=== PATIENT | female | born 1965 | race Caucasian/White ===

== ENCOUNTER 2020-06-07 16:30 | Emergency (ER) | payer MEDICAID, OTHER, SELFPAY ==
[~2020-06-07] VITALS: Ht 154.9 cm; Wt 50.3 kg
--- NOTE | 2020-06-07 16:51 | NUR ---
PIV STARTED AND LABS DRAWN.
[2020-06-07] MEDS ORDERED: LORazepam 2 MG/ML, 1ML ONE (16:52)
--- NOTE | 2020-06-07 17:00 | NUR ---
THIS IS A 55 YO F BIB EMS FROM [facility] W/ C/O SEIZURE. PT REPORTS HAS NOT HAD KEPPRA/DEPAKOTE X4 DAYS DUE TO ACCESS. PT RESTING ON GURNEY W/ CALL LIGHT IN REACH, SEIZURE PRECAUTIONS IN PLACE. MARY GOODWIN. AWAITING ED EVAL.
[2020-06-07 17:45] LABS: BASOPHILS % (AUTO) 1 % (0-1); EOSINOPHILS % (AUTO) 4 % (1-7); LYMPHOCYTES % (AUTO) 33 % (22-44); MEAN CORPUSCULAR HEMOGLOBIN 29.8 pg (27.0-34.8); MEAN CORPUSCULAR HGB CONC 33.3 g/dL (32.4-35.8); MEAN PLATELET VOLUME 9.1 fL (7.4-10.4); MONOCYTES % (AUTO) 12 % (2-9); NEUTROPHILS % (AUTO) 50 % (42-75); PLATELET COUNT 97 x10^3/uL (130-400); RED BLOOD COUNT 4.45 x10^6/uL (3.82-5.3)
[2020-06-07 17:46] LABS: MD NO
[2020-06-07 17:54] LABS: ALBUMIN 3.2 g/dL (3.4-5.0); ANION GAP 7 mmol/L (5-15); CALCIUM 8.7 mg/dL (8.5-10.1); CHLORIDE 107 mmol/L (98-107); CREATININE 1.16 mg/dL (0.55-1.02)
--- NOTE | 2020-06-07 17:58 | NUR ---
MED FIDENCIO FROM PHARMACY.
[2020-06-07] MEDS ORDERED: LEVETIRACETAM 1,000 MG in SODIUM CHLORIDE 0.9% 100 ML IV ONE (18:00)
--- NOTE | 2020-06-07 18:20 | NUR ---
CARE ASSUMED FOR NATURAL SCIENCES PROFESSOR. PT AxOx4. NO DISTRESS
[2020-06-07] MEDS ORDERED: LORazepam 1MG TABLET ONE (19:09)
[2020-06-07 19:15] VITALS: BP 96/61
[2020-06-07] MEDS ORDERED: LORazepam 1MG TABLET PO ONE (19:30)
== END 2020-06-07 19:42 | disposition home or self-care (01) ==
LOC: ED 18:29
DX: R56.9 Unspecified convulsions (principal); R51.9 Headache, unspecified; F41.9 Anxiety disorder, unspecified
CPT/HCPCS: 36415; 80048; 80185; 80307; 82040; 85025; 96365; 99284; J1953

== ENCOUNTER 2020-06-20 12:23 | Emergency (ER) | payer MEDICAID ==
[~2020-06-20] VITALS: Ht 167.6 cm; Wt 65.0 kg
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
--- NOTE | 2020-06-20 12:57 | NUR ---
REPORT TO TOMAS REED.
--- NOTE | 2020-06-20 12:57 | NUR ---
RECEIVED REPORT FROM TAMIKA
[2020-06-20] MEDS ORDERED: LORazepam 2 MG/ML, 1ML IVPush ONE (13:00)
--- NOTE | 2020-06-20 13:03 | NUR ---
PT UPRIGHT ON GURNEY WITH EYES CLOSED, AWAKENS WITH VERBAL STIMULI, NAD, COMFORT MEASURES PROVIDED, CALL LIGHT WITHIN REACH.
[2020-06-20] MEDS ORDERED: LORazepam 2 MG/ML, 1ML ONE (13:07)
[2020-06-20 13:26] LABS: ALBUMIN 2.8 g/dL (3.4-5.0); ANION GAP 4 mmol/L (5-15); CALCIUM 8.3 mg/dL (8.5-10.1); CHLORIDE 107 mmol/L (98-107); CREATININE 0.99 mg/dL (0.55-1.02)
[2020-06-20] MEDS ORDERED: SODIUM CHLORIDE FLUSH 10ML SYR IVF ONE (13:30)
[2020-06-20 13:31] LABS: BASOPHILS % (AUTO) 1 % (0-1); EOSINOPHILS % (AUTO) 5 % (1-7); LYMPHOCYTES % (AUTO) 30 % (22-44); MEAN CORPUSCULAR HGB CONC 33.1 g/dL (32.4-35.8); MEAN PLATELET VOLUME 8.9 fL (7.4-10.4); MONOCYTES % (AUTO) 23 % (2-9); NEUTROPHILS % (AUTO) 42 % (42-75); PLATELET COUNT 118 x10^3/uL (130-400); RED BLOOD COUNT 4.43 x10^6/uL (3.82-5.3); RED CELL DISTRIBUTION WIDTH 14.5 % (9.6-15.2)
[2020-06-20 13:48] LABS: MD NO
--- NOTE | 2020-06-20 13:53 | NUR ---
PT TO CT
--- NOTE | 2020-06-20 14:10 | NUR ---
PT UPRIGHT ON GURNEY WITH EYES CLOSED, AWAKENS WITH VERBAL STIMULI, COMFORTABLE WITH NAD, NO NEEDS AT THIS TIME, CALL LIGHT WITHIN REACH, SEIZURE PRECAUTIONS REMAIN IN PLACE.
--- NOTE | 2020-06-20 14:40 | NUR ---
PT TO XR
--- NOTE | 2020-06-20 15:25 | NUR ---
PT RETURNED FROM XR, LAYING ON GURNEY WITH EYES CLOSED, AWAKENS WITH VERBAL STIMULI, COMFORTABLE WITH NAD, NO NEEDS AT THIS TIME, CALL LIGHT WITHIN REACH, SEIZURE PRECAUTIONS REMAIN IN PLACE.
[2020-06-20 16:00] VITALS: BP 115/70
--- NOTE | 2020-06-20 16:00 | NUR ---
PT LAYING ON GURNEY MOSTLY SLEEPING, AWAKENS WITH VERBAL STIMULI, COMFORTABLE WITH NAD, NO NEEDS AT THIS TIME, CALL LIGHT WITHIN REACH, SEIZURE PRECAUTIONS REMAIN IN PLACE.
--- NOTE | 2020-06-20 16:45 | NUR ---
Patient given discharge instructions and they have confirmed that they understand the instructions. Patient ambulatory with steady gait.
== END 2020-06-20 17:32 | disposition home or self-care (01) ==
LOC: ED 13:38
DX: S39.012A Strain of muscle, fascia and tendon of lower back, initial encounter (principal); S16.1XXA Strain of muscle, fascia and tendon at neck level, initial encounter; S09.90XA Unspecified injury of head, initial encounter; R56.9 Unspecified convulsions; R55 Syncope and collapse; M54.2 Cervicalgia; R51.9 Headache, unspecified; W19.XXXA Unspecified fall, initial encounter; Y93.01 Activity, walking, marching and hiking; Y92.488 Other paved roadways as the place of occurrence of the external cause; Y99.8 Other external cause status
CPT/HCPCS: 36415; 70450; 71045; 72072; 72110; 72125; 73564; 80048; 80164; 80177; 82040; 85025; 93005; 96374; 99285; J2060

== ENCOUNTER 2020-06-27 13:02 | Emergency (ER) | payer MEDICAID ==
[~2020-06-27] VITALS: Ht 154.9 cm; Wt 47.0 kg
[2020-06-27 13:10] VITALS: BP 99/35
--- NOTE | 2020-06-27 13:50 | NUR ---
TILE TRIMMER: PT AMBULATORY TO ROOM FROM LOBBY
== END 2020-06-27 14:42 | disposition home or self-care (01) ==
LOC: ED 14:36
DX: R56.9 Unspecified convulsions (principal); F17.200 Nicotine dependence, unspecified, uncomplicated; Z76.0 Encounter for issue of repeat prescription
CPT/HCPCS: 99283

== ENCOUNTER 2020-11-03 10:10 | Emergency (ER) | payer MEDICAID ==
[~2020-11-03] VITALS: Ht 154.9 cm; Wt 58.0 kg
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
--- NOTE | 2020-11-03 10:10 | NUR ---
Report recieved from [facility] staff and care assumed. Pt placed in gown and on monitor. IV site assessed and saline locked again. Pt drowsy with 2mg Versed given by EMS WINE CELLAR STOCK CLERK.
[2020-11-03] MEDS ORDERED: SODIUM CHLORIDE FLUSH 10ML SYR IVF ONE (10:30)
[2020-11-03 10:44] LABS: BASOPHILS % (AUTO) 1 % (0-1); EOSINOPHILS % (AUTO) 2 % (1-7); LYMPHOCYTES % (AUTO) 14 % (22-44); MEAN CORPUSCULAR HEMOGLOBIN 31.2 pg (27.0-34.8); MEAN CORPUSCULAR HGB CONC 33.4 g/dL (32.4-35.8); MEAN PLATELET VOLUME 7.2 fL (7.4-10.4); MONOCYTES % (AUTO) 8 % (2-9); NEUTROPHILS % (AUTO) 76 % (42-75); PLATELET COUNT 198 x10^3/uL (130-400); RED CELL DISTRIBUTION WIDTH 15.2 % (9.6-15.2)
[2020-11-03 10:47] LABS: MD NO
[2020-11-03 10:56] LABS: ALANINE AMINOTRANSFERASE 19 U/L (12-78); ALBUMIN 3.2 g/dL (3.4-5.0); ANION GAP 4 mmol/L (5-15); CALCIUM 8.7 mg/dL (8.5-10.1); CHLORIDE 109 mmol/L (98-107); CREATININE 0.58 mg/dL (0.55-1.02)
[2020-11-03 10:59] LABS: ALKALINE PHOSPHATASE 75 U/L (45-117); BILIRUBIN,TOTAL 0.4 mg/dL (0.2-1.0); TOTAL PROTEIN 6.3 g/dL (6.4-8.2)
--- NOTE | 2020-11-03 11:02 | NUR ---
Straight cath UA obtained and sent to lab. Pt then placed on bedpan with good results. Pericare completed and pt provided new warm blanket.
--- NOTE | 2020-11-03 11:09 | NUR ---
Pt requesting bedpan again and place on it.
--- NOTE | 2020-11-03 11:11 | NUR ---
Pt off bedpan and no further uop noted.
[2020-11-03 11:24] LABS: MICROSCOPIC INDICATED
[2020-11-03 11:29] LABS: AMPHETAMINE SCREEN, URINE Negative (Negative); BARBITURATE SCREEN, URINE Negative (Negative); BENZODIAZEPINE SCREEN, URINE Positive (Negative); CANNABINOID SCREEN, URINE Positive (Negative); OPIATE SCREEN, URINE Negative (Negative)
[2020-11-03] MEDS ORDERED: LEVETIRACETAM 1,000 MG in SODIUM CHLORIDE 0.9% 100 ML IV ONE (11:30)
[2020-11-03] MEDS ORDERED: VALPROATE SODIUM 500 MG in SODIUM CHLORIDE 0.9% 100 ML IV ONE (11:30)
[2020-11-03 11:32] LABS: COCAINE SCREEN, URINE Negative (Negative); METHADONE SCREEN, URINE Negative (Negative)
--- NOTE | 2020-11-03 11:45 | NUR ---
Venkatesh gtt started at this time.
--- NOTE | 2020-11-03 12:29 | NUR ---
Second IV gtt med up and running via dial-a-flow. D/C up for when meds complete.
--- NOTE | 2020-11-03 13:06 | NUR ---
IV site reassessed for any infiltration or leaking as Valproic acid is running. Site is benign and pt is sleeping in no distress.
--- NOTE | 2020-11-03 13:31 | NUR ---
IV med gtt still infusing with small amount left to go now. Warm blanket provided and diet tray ordered.
--- NOTE | 2020-11-03 13:41 | NUR ---
Valproic gtt completed, site benign and saline locked. Awaiting diet tray as pt states she feels shaky and weak and has not eaten "in awhile." tug captain notified for reason of delay in discharge.
--- NOTE | 2020-11-03 13:49 | NUR ---
Lunch tray brought into pt and pt set up and eating without issue. Pt aware of discharge after she is done eating and feels less shaky.
--- NOTE | 2020-11-03 14:15 | NUR ---
Pt able to walk to restroom and back with minimal one-person assist and states she usually uses a cane but it was left at [facility]. Pt readied for d/c and taken to d/c desk by wheelchair with taxi voucher.
[2020-11-03 14:23] VITALS: BP 107/62
== END 2020-11-03 14:26 | disposition home or self-care (01) ==
LOC: ED 12:06
DX: G40.419 Other generalized epilepsy and epileptic syndromes, intractable, without status epilepticus (principal)
CPT/HCPCS: 36415; 71045; 80053; 80164; 80177; 80307; 81001; 85025; 87086; 93005; 96365; 96375; 99285; J1953

== ENCOUNTER 2020-11-11 20:34 | Emergency (ER) | payer MEDICAID ==
[~2020-11-11] VITALS: Ht 154.9 cm; Wt 42.5 kg
[2020-11-11 20:37] VITALS: BP 126/75
== END 2020-11-11 20:55 | disposition home or self-care (01) ==
LOC: ED 20:49
DX: F12.10 Cannabis abuse, uncomplicated (principal); R68.83 Chills (without fever); F17.210 Nicotine dependence, cigarettes, uncomplicated; Z72.9 Problem related to lifestyle, unspecified; Z59.0 Homelessness
CPT/HCPCS: 99283; 99406

== ENCOUNTER 2020-12-02 13:47 | Emergency (ER) | payer MEDICAID ==
[~2020-12-02] VITALS: Ht 154.9 cm; Wt 48.9 kg
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
[2020-12-02] MEDS ORDERED: HYDROcodone/APAP 5/325 TABLET ONE (14:22)
[2020-12-02] MEDS ORDERED: HYDROcodone/APAP 5/325 TABLET PO ONE (14:30)
[2020-12-02 15:19] VITALS: BP 104/61
== END 2020-12-02 15:58 | disposition home or self-care (01) ==
LOC: ED 15:30
DX: S20.222A Contusion of left back wall of thorax, initial encounter (principal); Z76.0 Encounter for issue of repeat prescription; R94.31 Abnormal electrocardiogram [ECG] [EKG]; J45.909 Unspecified asthma, uncomplicated; X58.XXXA Exposure to other specified factors, initial encounter; Y93.89 Activity, other specified; Y92.89 Other specified places as the place of occurrence of the external cause; Y99.8 Other external cause status
CPT/HCPCS: 93005; 99283

== ENCOUNTER 2020-12-08 00:42 | Observation (INO) | payer MEDICAID ==
[~2020-12-08] VITALS: Ht 154.9 cm; Wt 45.5 kg
[2020-12-08 01:14] LABS: BASOPHILS % (AUTO) 1 % (0-1); EOSINOPHILS % (AUTO) 5 % (1-7); LYMPHOCYTES % (AUTO) 25 % (22-44); MEAN CORPUSCULAR HEMOGLOBIN 31.2 pg (27.0-34.8); MEAN CORPUSCULAR HGB CONC 33.6 g/dL (32.4-35.8); MEAN PLATELET VOLUME 7.2 fL (7.4-10.4); MONOCYTES % (AUTO) 10 % (2-9); NEUTROPHILS % (AUTO) 59 % (42-75); PLATELET COUNT 239 x10^3/uL (130-400); RED BLOOD COUNT 4.19 x10^6/uL (3.82-5.3); RED CELL DISTRIBUTION WIDTH 14.1 % (9.6-15.2)
[2020-12-08 01:22] LABS: ALANINE AMINOTRANSFERASE 23 U/L (12-78); ALBUMIN 3.1 g/dL (3.4-5.0); ANION GAP 6 mmol/L (5-15); CALCIUM 8.3 mg/dL (8.5-10.1); CHLORIDE 112 mmol/L (98-107); SALICYLATE LEVEL 1.9 mg/dL (2.8-20.0)
[2020-12-08 01:33] LABS: ALKALINE PHOSPHATASE 98 U/L (45-117); BILIRUBIN,TOTAL 0.2 mg/dL (0.2-1.0); CREATININE 0.69 mg/dL (0.55-1.02); TOTAL PROTEIN 6.5 g/dL (6.4-8.2)
[2020-12-08 01:37] LABS: MD NO
[2020-12-08 01:52] LABS: FREE T4 (FREE THYROXINE) 0.96 ng/dL (0.76-1.46)
--- NOTE | 2020-12-08 01:59 | NUR ---
RECEIVED REPORT FROM OFF GOING RN. PT SLEEPING IN BED, HAS PROVIDED URINE FOR SAMPLE, AND MECHANICAL APPRENTICE HAS DRAWN BLOOD AND SENT IT TO LAB. EKG DONE. PT ON CR MONITOR, SIDERAILS UP X2 AND CALL LIGHT WITHIN REACH.
[2020-12-08] MEDS ORDERED: POTASSIUM CHLORIDE 40 MEQ in SODIUM CHLORIDE 0.9% 500 ML IV ONE (02:00)
--- NOTE | 2020-12-08 02:36 | NUR ---
TELEPSYCH ORDERED, AND TELEPSYCH MONITOR ROLLED INTO ROOM. PT ADVISED THAT WHEN THE DOCTOR COMES ON SHE IS TO TALK TO HIM WITH PRIVACY PROVIDED. PT V/U.
--- NOTE | 2020-12-08 04:56 | NUR ---
PT SLEEPING, NO ACUTE DISTRESS. SITTER OUTSIDE OF ROOM. TELE PSYCH MONITOR IN THE ROOM FOR PT.
--- NOTE | 2020-12-08 04:57 | NUR ---
SIDERAILS UP X2 AND CALL LIGHT WITHIN REACH.
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
--- NOTE | 2020-12-08 06:33 | NUR ---
DIET TRAY ORDERED
--- NOTE | 2020-12-08 07:17 | NUR ---
PATIENT AWAITING TELE PSYCH. PATIENT TRAY ORDERED. SLEEPING. CALM IN BED RAILS UP SITTER OUTSIDE ROOM
[2020-12-08 08:38] LABS: AMPHETAMINE SCREEN, URINE Negative (Negative); BARBITURATE SCREEN, URINE Negative (Negative); BENZODIAZEPINE SCREEN, URINE Negative (Negative); CANNABINOID SCREEN, URINE Positive (Negative); COCAINE SCREEN, URINE Negative (Negative); METHADONE SCREEN, URINE Negative (Negative); OPIATE SCREEN, URINE Negative (Negative)
--- NOTE | 2020-12-08 08:51 | NUR ---
ATE ALL OF BREAKFAST
--- NOTE | 2020-12-08 10:08 | NUR ---
PATIENT RESTING QUIETLY
[2020-12-08 10:38] VITALS: BP 122/78
--- NOTE | 2020-12-08 10:39 | NUR ---
GOT PATIENT ALL OF HER BELONGINGS. PATIENT HELPED TO CALL MEDICAID TRANSPORT TO CARE HOME AND GOT HER HER MEDICAID NUMBER. PATIENT GOOD ON FEET. GOT HER A PEANUT BUTTER AND JELLY SANDWICH, CRACKERS, JUICE TO GO. DISCHARGE REVIEWED. SHOWS UNDESTANDING
== END 2020-12-08 10:58 | disposition home or self-care (01) ==
LOC: ED 01:04 → EDIP 06:06
PROVIDERS: ADMIT Emergency Medicine; ATTEND Emergency Medicine
DX: F32.9 Major depressive disorder, single episode, unspecified (principal); R45.851 Suicidal ideations; F41.1 Generalized anxiety disorder; F20.9 Schizophrenia, unspecified; F43.10 Post-traumatic stress disorder, unspecified; J44.9 Chronic obstructive pulmonary disease, unspecified; F12.90 Cannabis use, unspecified, uncomplicated; F17.210 Nicotine dependence, cigarettes, uncomplicated; Z72.9 Problem related to lifestyle, unspecified; Z79.899 Other long term (current) drug therapy
CPT/HCPCS: 36415; 80053; 80299; 80307; 80320; 80329; 84439; 84443; 85025; 93005; 99284; G0378; G0480

== ENCOUNTER 2021-01-19 12:21 | Emergency (ER) | payer MEDICAID ==
[~2021-01-19] VITALS: Ht 154.9 cm; Wt 50.0 kg
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
[2021-01-19] MEDS ORDERED: LORazepam 1MG TABLET PO ONE (13:00)
[2021-01-19] MEDS ORDERED: LORazepam 1MG TABLET ONE (13:04)
[2021-01-19 13:08] LABS: BASOPHILS % (AUTO) 1 % (0-1); EOSINOPHILS % (AUTO) 4 % (1-7); LYMPHOCYTES % (AUTO) 31 % (22-44); MEAN CORPUSCULAR HEMOGLOBIN 30.6 pg (27.0-34.8); MEAN CORPUSCULAR HGB CONC 33.6 g/dL (32.4-35.8); MEAN PLATELET VOLUME 7.3 fL (7.4-10.4); MONOCYTES % (AUTO) 13 % (2-9); NEUTROPHILS % (AUTO) 51 % (42-75); PLATELET COUNT 197 x10^3/uL (130-400); RED BLOOD COUNT 4.23 x10^6/uL (3.82-5.3); RED CELL DISTRIBUTION WIDTH 13.9 % (9.6-15.2)
[2021-01-19] MEDS ORDERED: NICOTINE 14MG/24 HR PATCH.TD24 ONE (13:12)
[2021-01-19 13:15] LABS: HCG UR SG 1.028 (1.003-1.030); MICROSCOPIC NOT IND
[2021-01-19 13:19] LABS: ALANINE AMINOTRANSFERASE 24 U/L (12-78); ANION GAP 3 mmol/L (5-15); CALCIUM 8.2 mg/dL (8.5-10.1); CHLORIDE 113 mmol/L (98-107); CREATININE 0.64 mg/dL (0.55-1.02)
[2021-01-19 13:20] LABS: ALKALINE PHOSPHATASE 95 U/L (45-117); BILIRUBIN,TOTAL 0.3 mg/dL (0.2-1.0); TOTAL PROTEIN 6.4 g/dL (6.4-8.2)
[2021-01-19 13:21] LABS: SALICYLATE LEVEL < 1.7 mg/dL (2.8-20.0)
[2021-01-19] MEDS ORDERED: NICOTINE 14MG/24 HR PATCH.TD24 TD ONE (13:30)
[2021-01-19 13:31] LABS: AMPHETAMINE SCREEN, URINE Negative (Negative); BARBITURATE SCREEN, URINE Negative (Negative); BENZODIAZEPINE SCREEN, URINE Negative (Negative); CANNABINOID SCREEN, URINE Positive (Negative); COCAINE SCREEN, URINE Negative (Negative); METHADONE SCREEN, URINE Negative (Negative); OPIATE SCREEN, URINE Negative (Negative)
--- NOTE | 2021-01-19 13:54 | NUR ---
REPORT TO BRIGITTE REED.
--- NOTE | 2021-01-19 13:56 | NUR ---
ASSUMED CARE OF PATIENT. REPORT GIVEN FROM BRIANNA RODRIGUEZ
--- NOTE | 2021-01-19 14:55 | NUR ---
PT RESTING IN ROOM. SITTER AT BEDSIDE. NO ACUTE DISTRESS. WILL CONTINUE TO MONITOR.
--- NOTE | 2021-01-19 16:09 | NUR ---
PT RESTING IN ROOM. VS STABLE. SITTER AT BEDSIDE. WILL CONTINUE TO MONITOR.
--- NOTE | 2021-01-19 16:40 | NUR ---
pt transftered to room 3. this rn re-assuming care. belongings placed in locker: 1 large tube of clothing, 1 patient belongings bag, and 1 suitcase.
--- NOTE | 2021-01-19 17:10 | NUR ---
PT ASLEEP WITH EVEN AND UNLABORED RESPIRATIONS. SITTER AT BEDSIDE.
--- NOTE | 2021-01-19 19:00 | NUR ---
REPORT RECIEVED FROM BRIANNA RODRIGUEZ. PT SLEEPING, RESP EVEN/UNLABORED, PT ON CONTINUOUS PULSE OX
--- NOTE | 2021-01-19 19:38 | NUR ---
ERP SPOKE WITH PT, PT TO BE PUT ON A HOLD. SAFETY MEASURES IN PLACE, IN LINE OF SIGHT OF SITTER
[2021-01-19 20:03] VITALS: BP 102/65
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
--- NOTE | 2021-01-19 21:07 | NUR ---
pt resting in gurney, resp even/unlabored, continuous pulse ox in place, in line of sight of sitter
--- NOTE | 2021-01-19 21:47 | NUR ---
SPOKE WITH BRIANNA EDMOND AT [facility]. RN TO CALL DOC AND SEE IF THEY CAN ACCEPT
--- NOTE | 2021-01-19 22:01 | NUR ---
TP RN: [facility] ACCEPTED PT AND CAN BE TRANSFERED AFTER MIDNIGHT
--- NOTE | 2021-01-19 23:12 | NUR ---
PT RESTING IN [facility], PROVIDED SODA AND CRACKERS PER REQUEST. IN LINE OF SIGHT OF ORI
[2021-01-20] MEDS ORDERED: TRAZ-175 PO (05:54)
[2021-01-20] MEDS ORDERED: GABA600T7 PO (05:54)
[2021-01-20] MEDS ORDERED: CITA20TA6 PO (05:54)
[2021-01-20] MEDS ORDERED: OLAN20TA14 PO (05:54)
[2021-01-20] MEDS ORDERED: MIRT-14 PO (05:54)
[2021-01-20] MEDS ORDERED: DIVA500T2 PO (10:02)
== END 2021-01-20 00:26 ==
LOC: ED 13:07
DX: R45.851 Suicidal ideations (principal); Z20.822 Contact with and (suspected) exposure to COVID-19; F12.129 Cannabis abuse with intoxication, unspecified; J45.909 Unspecified asthma, uncomplicated
CPT/HCPCS: 36415; 80053; 80299; 80307; 80320; 80329; 81003; 81025; 85025; 87426; 99285; G0480

== ENCOUNTER 2021-01-20 00:06 | Inpatient (IN) | payer MEDICAID ==
[~2021-01-20] VITALS: Ht 154.9 cm; Wt 53.8 kg
[2021-01-20] MEDS ORDERED: POLYETHYLENE GLYCOL 17 GM PACKET PO PRN (00:30)
[2021-01-20] MEDS ORDERED: ACETAMINOPHEN 325 MG TABLET PO PRN (00:30)
[2021-01-20] MEDS ORDERED: BISACODYL 10 MG SUPP PR PRN (00:30)
[2021-01-20] MEDS ORDERED: ONDANSETRON ODT 4 MG PO PRN (00:30)
[2021-01-20] MEDS ORDERED: DOCUSATE 100 MG CAPSULE PO PRN (00:30)
[2021-01-20 01:57] VITALS: BP 100/63
[2021-01-20] MEDS: TRAZODONE 100MG TABLET PO SCH ×2 (02:05→23:01)
[2021-01-20] MEDS ORDERED: CITA20TA6 PO (05:54)
[2021-01-20] MEDS ORDERED: TRAZ-175 PO (05:54)
[2021-01-20] MEDS ORDERED: OLAN20TA14 PO (05:54)
[2021-01-20] MEDS ORDERED: GABA600T7 PO (05:54)
[2021-01-20] MEDS ORDERED: MIRT-14 PO (05:54)
[2021-01-20 07:18] LABS: CHOL/HDL RATIO 3.4; FREE T4 (FREE THYROXINE) 0.75 ng/dL (0.76-1.46); LDL/HDL RATIO 2.1 (0.5-3.0)
[2021-01-20 07:45] VITALS: BP 103/72
[2021-01-20] MEDS: CITALOPRAM 20 MG TABLET PO SCH (09:18)
[2021-01-20] MEDS: NICOTINE 14MG/24 HR PATCH.TD24 TD SCH (09:18)
[2021-01-20] MEDS: GABAPENTIN 300 MG CAPSULE PO SCH ×2 (09:30→16:12)
[2021-01-20] MEDS ORDERED: DIVA500T2 PO (10:02)
[2021-01-20] MEDS: DIVALPROEX 500 MG TABLET.DR PO SCH ×2 (10:13→23:01)
[2021-01-20] MEDS: HYDROXYZINE PAMOATE 50MG CAP PO PRN (10:13)
[2021-01-20 19:30] VITALS: BP 117/72
[2021-01-20] MEDS: MIRTAZAPINE 15 MG TABLET PO SCH (23:01)
[2021-01-20] MEDS: OLANZAPINE 10 MG TABLET PO SCH (23:01)
[2021-01-20] MEDS: LEVETIRACETAM 500 MG TABLET PO SCH (23:01)
[2021-01-21 07:43] VITALS: BP 106/61
[2021-01-21] MEDS: HYDROXYZINE PAMOATE 50MG CAP PO PRN ×2 (09:06→21:04)
[2021-01-21] MEDS: DIVALPROEX 500 MG TABLET.DR PO SCH ×2 (09:07→20:58)
[2021-01-21] MEDS: LEVETIRACETAM 500 MG TABLET PO SCH ×2 (09:07→20:58)
[2021-01-21] MEDS: CITALOPRAM 20 MG TABLET PO SCH (09:07)
[2021-01-21] MEDS: NICOTINE 14MG/24 HR PATCH.TD24 TD SCH (09:08)
[2021-01-21] MEDS: LORazepam 1MG TABLET PO PRN (14:58)
[2021-01-21 19:28] VITALS: BP 100/45
[2021-01-21] MEDS: MIRTAZAPINE 15 MG TABLET PO SCH (20:58)
[2021-01-21] MEDS: OLANZAPINE 10 MG TABLET PO SCH (20:58)
[2021-01-21] MEDS: TRAZODONE 100MG TABLET PO SCH (20:58)
[2021-01-22] MEDS: LORazepam 1MG TABLET PO PRN ×2 (02:49→15:34)
[2021-01-22 07:26] VITALS: BP 101/66
[2021-01-22] MEDS: NICOTINE 14MG/24 HR PATCH.TD24 TD SCH (08:36)
[2021-01-22] MEDS: DIVALPROEX 500 MG TABLET.DR PO SCH ×2 (08:36→20:52)
[2021-01-22] MEDS: CITALOPRAM 20 MG TABLET PO SCH (08:36)
[2021-01-22] MEDS: LEVETIRACETAM 500 MG TABLET PO SCH ×2 (08:36→20:52)
[2021-01-22] MEDS: HYDROXYZINE PAMOATE 50MG CAP PO PRN ×2 (08:45→16:37)
[2021-01-22 19:27] VITALS: BP 107/70
[2021-01-22] MEDS: MIRTAZAPINE 15 MG TABLET PO SCH (20:52)
[2021-01-22] MEDS: OLANZAPINE 10 MG TABLET PO SCH (20:52)
[2021-01-22] MEDS: TRAZODONE 100MG TABLET PO SCH (20:52)
[2021-01-23] MEDS: LORazepam 1MG TABLET PO PRN ×2 (00:22→15:27)
[2021-01-23 07:01] VITALS: BP 98/62
[2021-01-23] MEDS: DIVALPROEX 500 MG TABLET.DR PO SCH ×2 (08:10→21:40)
[2021-01-23] MEDS: LEVETIRACETAM 500 MG TABLET PO SCH ×2 (08:10→21:39)
[2021-01-23] MEDS: CITALOPRAM 20 MG TABLET PO SCH (08:10)
[2021-01-23] MEDS: NICOTINE 14MG/24 HR PATCH.TD24 TD SCH (08:11)
[2021-01-23] MEDS ORDERED: MIRT-14 PO (15:33)
[2021-01-23] MEDS ORDERED: HYDR50CA2 PO (15:33)
[2021-01-23] MEDS ORDERED: CITA20TA9 PO (15:33)
[2021-01-23] MEDS ORDERED: OLAN10TA9 PO (15:33)
[2021-01-23] MEDS ORDERED: TRAZ-175 PO (15:33)
[2021-01-23] MEDS ORDERED: NICO-486 TD (15:33)
[2021-01-23] MEDS ORDERED: DIVA-61 PO (15:33)
[2021-01-23 19:56] VITALS: BP 114/78
[2021-01-23] MEDS: OLANZAPINE 10 MG TABLET PO SCH (21:39)
[2021-01-23] MEDS: TRAZODONE 100MG TABLET PO SCH (21:39)
[2021-01-23] MEDS: MIRTAZAPINE 15 MG TABLET PO SCH (21:39)
[2021-01-24] MEDS: LORazepam 1MG TABLET PO PRN (01:18)
[2021-01-24 07:52] VITALS: BP 105/70
[2021-01-24] MEDS: DIVALPROEX 500 MG TABLET.DR PO SCH (08:18)
[2021-01-24] MEDS: LEVETIRACETAM 500 MG TABLET PO SCH (08:18)
[2021-01-24] MEDS: NICOTINE 14MG/24 HR PATCH.TD24 TD SCH (08:18)
[2021-01-24] MEDS: HYDROXYZINE PAMOATE 50MG CAP PO PRN (08:18)
[2021-01-24] MEDS: CITALOPRAM 20 MG TABLET PO SCH (08:18)
== END 2021-01-24 11:17 | disposition home or self-care (01) | DRG 885 ==
LOC: 3E 00:26
PROVIDERS: ADMIT Psychiatry & Neurology Psychosomatic Medicine; ATTEND Psychiatry & Neurology Psychosomatic Medicine
DX: F33.2 Major depressive disorder, recurrent severe without psychotic features (principal); F14.20 Cocaine dependence, uncomplicated; R45.851 Suicidal ideations; F43.10 Post-traumatic stress disorder, unspecified; G40.909 Epilepsy, unspecified, not intractable, without status epilepticus; G47.00 Insomnia, unspecified; Z59.0 Homelessness; Z79.899 Other long term (current) drug therapy; Z90.710 Acquired absence of both cervix and uterus
CPT/HCPCS: 36415; 71045; 80053; 80061; 80299; 80307; 80320; 80329; 81003; 81025; 82607; 84439; 84443; 85025; 87426; 93005; 99285; G0480

== ENCOUNTER 2021-01-24 18:45 | Emergency (ER) | payer MEDICAID ==
[~2021-01-24] VITALS: Ht 165.1 cm; Wt 60.0 kg
[~2021-01-24 18:45] MED LIST: CITA20TA6 PO; CITA20TA9 PO; DIVA-61 PO; DIVA500T2 PO; GABA600T7 PO; HYDR50CA2 PO; MIRT-14 PO; NICO-486 TD; OLAN10TA9 PO; OLAN20TA14 PO; TRAZ-175 PO
--- NOTE | 2021-01-24 19:02 | NUR ---
supercharger mechanic: pt. to room from wall with milton at this time.
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
[2021-01-24 21:08] VITALS: BP 128/78
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
== END 2021-01-24 21:39 | disposition home or self-care (01) ==
LOC: ED 19:15
DX: F33.9 Major depressive disorder, recurrent, unspecified (principal); F17.200 Nicotine dependence, unspecified, uncomplicated; J45.909 Unspecified asthma, uncomplicated
CPT/HCPCS: 99283; 99284

== ENCOUNTER 2021-03-11 14:38 | Emergency (ER) | payer MEDICAID ==
[~2021-03-11] VITALS: Ht 154.9 cm; Wt 56.0 kg
[~2021-03-11 14:38] MED LIST changes: +OLAN10TA69 PO; -OLAN10TA9 PO
[2021-03-11 14:46] VITALS: BP 115/66
--- NOTE | 2021-03-11 14:57 | NUR ---
BIB [facility] FOR CP/SOB SINCE TAKING A WALK YESTERDAY. PAIN 5/10 AT THIS TIME. PT TO BP, CONT PULSE OX, CARD MONITOR, EKG COMPLETED. AWAITING MARITO CUNNING[place]
[2021-03-11 15:45] LABS: ALBUMIN 2.9 g/dL (3.4-5.0); ANION GAP 4 mmol/L (5-15); CALCIUM 8.6 mg/dL (8.5-10.1); CHLORIDE 112 mmol/L (98-107); CREATININE 0.73 mg/dL (0.55-1.02)
[2021-03-11 16:03] LABS: BASOPHILS % (AUTO) 1 % (0-1); EOSINOPHILS % (AUTO) 4 % (1-7); LYMPHOCYTES % (AUTO) 23 % (22-44); MEAN CORPUSCULAR HEMOGLOBIN 29.8 pg (27.0-34.8); MEAN CORPUSCULAR HGB CONC 33.1 g/dL (32.4-35.8); MEAN PLATELET VOLUME 7.2 fL (7.4-10.4); MONOCYTES % (AUTO) 13 % (2-9); NEUTROPHILS % (AUTO) 59 % (42-75); PLATELET COUNT 189 x10^3/uL (130-400); RED BLOOD COUNT 3.87 x10^6/uL (3.82-5.3); RED CELL DISTRIBUTION WIDTH 15.7 % (9.6-15.2)
== END 2021-03-11 17:12 | disposition home or self-care (01) ==
LOC: ED 17:06
DX: J44.1 Chronic obstructive pulmonary disease with (acute) exacerbation (principal); Z76.0 Encounter for issue of repeat prescription; F17.210 Nicotine dependence, cigarettes, uncomplicated
CPT/HCPCS: 36415; 71045; 80048; 82040; 85025; 93005; 99406